=== PATIENT | male | born 1980 | race Caucasian/White ===

== ENCOUNTER 2023-05-03 11:30 | Emergency (ER) | payer OTHER ==
[~2023-05-03] VITALS: Ht 162.6 cm; Wt 74.1 kg
[2023-05-03 11:50] VITALS: BP 141/70; PULSE 67; RESP 18; TEMP 98.5; O2SAT 97
== END 2023-05-03 14:31 | disposition home or self-care (01) ==
LOC: MED 11:30
DX: D17.21 Benign lipomatous neoplasm of skin and subcutaneous tissue of right arm (principal); Z79.899 Other long term (current) drug therapy
CPT/HCPCS: 99284